=== PATIENT | male | born 2000 | race Caucasian/White ===

== ENCOUNTER 2019-05-31 17:12 | Emergency (ER) | payer SELFPAY ==
[~2019-05-31] VITALS: Ht 182.9 cm; Wt 109.1 kg
[2019-05-31 17:36] VITALS: BP 130/79; PULSE 90; TEMP 99
[2019-05-31] MEDS ORDERED: PREDNISONE20 MG PO (18:14)
== END 2019-05-31 18:23 | disposition home or self-care (01) ==
LOC: COL.ER 17:12
DX: S30.860A Insect bite (nonvenomous) of lower back and pelvis, initial encounter (principal); S40.862A Insect bite (nonvenomous) of left upper arm, initial encounter; S40.861A Insect bite (nonvenomous) of right upper arm, initial encounter; K21.9 Gastro-esophageal reflux disease without esophagitis; W57.XXXA Bitten or stung by nonvenomous insect and other nonvenomous arthropods, initial encounter
CPT/HCPCS: J7512

== ENCOUNTER 2019-06-09 20:27 | Emergency (ER) | payer SELFPAY ==
[~2019-06-09] VITALS: Ht 182.9 cm; Wt 109.1 kg
[~2019-06-09 20:27] MED LIST: PREDNISONE20 MG PO
[2019-06-09 20:32] VITALS: BP 127/71; TEMP 98.3
[2019-06-09] MEDS ORDERED: ELIMITE TOP (21:12)
[2019-06-09 21:23] VITALS: PULSE 77
== END 2019-06-09 21:27 | disposition home or self-care (01) ==
LOC: COL.ER 20:27
DX: R21 Rash and other nonspecific skin eruption (principal)